=== PATIENT | female | born 1990 | race Caucasian/White ===

== ENCOUNTER 2017-12-15 10:43 | Emergency (ER) | payer OTHER ==
[~2017-12-15] VITALS: Ht 160 cm; Wt 77.1 kg
== END 2017-12-15 19:32 | disposition home or self-care (01) ==
LOC: ER 10:43
DX: K52.89 Other specified noninfective gastroenteritis and colitis (principal)

== ENCOUNTER 2018-07-07 09:57 | Emergency (ER) | payer OTHER ==
[~2018-07-07] VITALS: Ht 160 cm; Wt 81.6 kg
== END 2018-07-07 12:33 | disposition home or self-care (01) ==
LOC: ER 09:57
DX: S93.402A Sprain of unspecified ligament of left ankle, initial encounter (principal); S93.602A Unspecified sprain of left foot, initial encounter; X50.3XXA Overexertion from repetitive movements, initial encounter; Y93.89 Activity, other specified; Y92.89 Other specified places as the place of occurrence of the external cause; Y99.8 Other external cause status